=== PATIENT | female | born 2000 | race Caucasian/White ===

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

== ENCOUNTER 2018-02-13 08:40 | Emergency (ER) | payer OTHER ==
[2018-02-13 08:57] VITALS: BP 125/70; PULSE 75; TEMP 98.3; BMI 26.4
--- NOTE | 2018-02-13 09:00 | PDOC ---
Post Exposure HPI - General Chief Complaint: Blood/Body Fluid Exposure SJR Stated Complaint: NEEDLE STICK WHILE DRAWING BLOOD Time Seen by Provider: 02/13/18 08:44 History Source: Patient Exam Limitations: No Limitations - History of Present Illness Timing: just prior to arrival Severity: mild Exposed Location: Left: Hand(s) Assessing Significant Risk PEP: Yes Percutaneous Past History - Past Medical History Allergies/Adverse Reactions: Allergies Allergy/AdvReac Type Severity Reaction Status Date / Time No Known Allergies Allergy Verified 02/13/18 08:43 Home Medications: Ambulatory Orders NK [No Known Home Medication] 02/13/18 Anemia: No Asthma: No Cancer: No Cardiac Disorders: No CVA: No COPD: No DVT: No Dementia: No Diabetes: No Dialysis: No GI Disorders: No Disorders: No HTN: No Hypercholesterolemia: No Kidney Stones: No Liver Disease: No Psychiatric Problems: No Seizures: No Thyroid Disease: No Lung CA: No - Surgical History Abdominal Surgery: No Appendectomy: No Cardiac Surgery: No Cholecystectomy: No Gastric Stapling: No GI Surgery: No Lung Surgery: No Neurologic Surgery: No - Immunization History Immunization Up to Date: Yes - Suicide/Smoking/Psychosocial Hx Smoking History: Never smoked Have you smoked in the past 12 months: No Hx Alcohol Use: No Drug/Substance Use Hx: No Substance Use Type: None Review of Systems - Review of Systems Able to Perform ROS?: Yes Comments:: 02/13/18 08:45 GENERAL/CONSTITUTIONAL: No fever or chills. No weakness. HEAD, EYES, EARS, NOSE AND THROAT: No change in vision. No ear pain or discharge. No sore throat. CARDIOVASCULAR: No chest pain or shortness of breath. RESPIRATORY: No cough, wheezing, or hemoptysis. GASTROINTESTINAL: No nausea, vomiting, diarrhea or constipation. GENITOURINARY: No dysuria, frequency, or change in urination. MUSCULOSKELETAL: No joint or muscle swelling or pain. No neck or back pain. SKIN: No rash NEUROLOGIC: No headache, vertigo, loss of consciousness, or change in strength/ sensation. ENDOCRINE: No increased thirst. No abnormal weight change. HEMATOLOGIC/LYMPHATIC: No anemia, easy bleeding, or history of blood clots. ALLERGIC/IMMUNOLOGIC: No hives or skin allergy. *Physical Exam - Physical Exam Comments: 02/13/18 08:45 GENERAL: Awake, alert, and fully oriented, in no acute distress. HEAD: No signs of trauma EYES: PERRLA, EOMI, sclera anicteric, conjunctiva clear ENT: Auricles normal inspection, hearing grossly normal, nares patent NECK: Normal ROM, supple EXTREMITIES: Normal range of motion, no edema. NEUROLOGICAL: Cranial nerves II through XII grossly intact. Normal speech, normal gait. SKIN: Warm, Dry, normal turgor, no rashes or lesions noted. Left hand with no skin lacerations, abrasions, or rupture. Medical Decision Making - Medical Decision Making 02/13/18 09:00 18 yo F c/ no pmh, [facility] [employer], presents with post exposure. Was using a 25 gauge butterfly needle in outpatient office. As she withdraw needle, accidentally scratched herself. Denies puncture or other injuries. Tetanus is up to date. Skin appears to be overall intact (with a very mild scratch along the dorsal surface of left hand). Very low risk for HIV. Discussed risks and benefits of HIV prophylaxis, and after discussion, we both concluded that we will not be starting prophylactics at this time. Pt's billing supervisor contacted and aware. Will have patient fill out incident report. Draw post exposure blood work, HIV test, hepatitis panel, and have patient follow up with occupational health. Pt verbalizes understanding and agrees with plan. *DC/Admit/Observation/Transfer Diagnosis at time of Disposition: Employee exposure to body fluids - Discharge Dispostion Disposition: HOME Condition at time of disposition: Stable Admit: No - Referrals - Patient Instructions Printed Discharge Instructions: How to Handle Body Fluid Exposure -- Healthcare Worker Additional Instructions: It is important that you call your billing supervisor and occupational health to discuss follow up.
[2018-02-13 09:39] LABS: BASO % 0.5 % (0-2.0); RDW 11.8 % (11.6-15.6)
[2018-02-13 09:42] LABS: EOS % 0.8 % (0-4.5); HEMATOCRIT 40.7 % (32.4-45.2); HEMOGLOBIN 13.6 GM/dl (10.7-15.3); LYMPH % 31.8 % (8-40); MCH 30.7 pg (25.7-33.7); MCHC 33.5 g/dl (32.0-36.0); MEAN CELL VOLUME 91.7 fl (80-96); MEAN PLT VOLUME 9.1 fl (7.5-11.1); MONO % 4.6 % (3.8-10.2); NEUT % 62.3 % (42.8-82.8); PLATELET COUNT 248 K/MM3 (134-434); RBC 4.44 M/mm3 (3.60-5.2); WHITE BLOOD COUNT 5.8 K/mm3 (4.0-10.8)
[2018-02-13 09:45] LABS: ALBUMIN 4.5 g/dl (3.5-5.0); ALK PHOS 61 U/L (32-92); ANION GAP 9 (8-16); BILIRUBIN,TOTAL 0.6 mg/dl (0.2-1.0); BLOOD UREA NITROGEN 12 mg/dl (7-18); CALCIUM 9.8 mg/dl (8.4-10.2); CHLORIDE 104 mmol/L (98-107); CHOLESTEROL 141 mg/dl; CO2 24 mmol/L (22-28); GAMMA GLUTAMYL TRANSPEPTIDASE 24 U/L (3-64); GLUCOSE,RANDOM 93 mg/dl (74-106); LDH 149 U/L (91-180); PHOSPHOROUS 3.7 mg/dl (2.5-4.6); SGOT/AST 21 U/L (10-42); SGPT/ALT 17 U/L (10-40); SODIUM 137 mmol/L (136-145); TOT PROT 8.1 g/dl (6.4-8.3); TRIGLYCERIDES 65 mg/dl (35-160); URIC ACID 3.6 mg/dl (2.6-7.2)
[2018-02-13 10:03] LABS: CREATININE < 0.8 mg/dl (0.6-1.3)
[2018-02-14 08:06] LABS: HBsAG SCREEN Negative (Negative); HEPATITIS B CORE ANTIBODY Negative (Negative)
== END 2018-02-13 09:32 | disposition home or self-care (01) ==
LOC: FER 08:40
DX: Z77.21 Contact with and (suspected) exposure to potentially hazardous body fluids (principal); W46.0XXA Contact with hypodermic needle, initial encounter; Y93.89 Activity, other specified; Y92.239 Unspecified place in hospital as the place of occurrence of the external cause; Y99.0 Civilian activity done for income or pay
CPT/HCPCS: 36415; 80053; 82465; 82977; 83615; 84100; 84478; 84550; 85025; 86704; 87340; 87389; 99282-25

== ENCOUNTER 2018-12-02 08:38 | Emergency (ER) | payer OTHER ==
[2018-12-02 08:46] VITALS: BMI 25.4
[2018-12-02] MEDS ORDERED: ONDANSETRON *ODT* 4 MG TABLET SL ONE (09:13)
[2018-12-02] MEDS ORDERED: SODIUM CHLORIDE 500 ML IV STA (09:17)
[2018-12-02] MEDS ORDERED: FAMOTIDINE 20 MG/50 ML IVPB 20 MG/50 ML MG IVPB ONE ×2 (09:37→09:48)
[2018-12-02] MEDS ORDERED: MAG HYDROX/AL HYDROX/SIMETH 30 ML UNIT-DOSE CUP PO ONE (09:37)
--- NOTE | 2018-12-02 09:44 | PDOC ---
History of Present Illness - General History Source: Patient Exam Limitations: Clinical Condition - History of Present Illness Initial Comments: 12/02/18 09:42 Patient with no significant past medical history present with complaint of five- day history of nausea, vomiting, epigastric pain and diarrhea. Patient reports she has been self-medicating herself with amoxicillin taken from father who is a doctor for 5 days. Patient report tactile fever yesterday but none today. Patient reported weakness and headache today. Patient denies any other symptoms 12/02/18 09:43 Timing/Duration: other (5 days) <Lam Perez - Last Filed: 12/02/18 10:48> <Timmy Pressley - Last Filed: 12/03/18 10:08> - General Chief Complaint: Nausea/Vomiting Stated Complaint: VOMITING/DIARRHEA Time Seen by Provider: 12/02/18 09:11 Past History - Past Medical History Anemia: No Asthma: No Cancer: No Cardiac Disorders: No CVA: No COPD: No DVT: No Dementia: No Diabetes: No Dialysis: No GI Disorders: No Disorders: No HTN: No Hypercholesterolemia: No Kidney Stones: No Liver Disease: No Psychiatric Problems: No Seizures: No Thyroid Disease: No Lung CA: No - Surgical History Abdominal Surgery: No Appendectomy: No Cardiac Surgery: No Cholecystectomy: No Gastric Stapling: No GI Surgery: No Lung Surgery: No Neurologic Surgery: No - Immunization History Immunization Up to Date: Yes - Suicide/Smoking/Psychosocial Hx Smoking History: Never smoked Have you smoked in the past 12 months: No Hx Alcohol Use: No Drug/Substance Use Hx: No Substance Use Type: None <AnaLam - Last Filed: 12/02/18 10:48> <Timmy Pressley - Last Filed: 12/03/18 10:08> - Past Medical History Allergies/Adverse Reactions: Allergies Allergy/AdvReac Type Severity Reaction Status Date / Time No Known Allergies Allergy Verified 12/02/18 10:18 Home Medications: Ambulatory Orders Famotidine [Pepcid] 20 mg PO DAILY #6 tablet 12/02/18 Mag Hydrox/Aluminum Hyd/Simeth [Maalox Advanced Suspension] 30 ml PO Q8H PRN # 300 ml 12/02/18 Ondansetron [Zofran Odt -] 4 mg SL TID PRN #12 od.tablet 12/02/18 Review of Systems - Review of Systems Able to Perform ROS?: Yes Is the patient limited Vietnamese proficient: No Constitutional: Yes: Malaise, Weakness. No: See HPI, Chills, Fever HEENTM: Yes: Symptoms Reported, See HPI, Nose Congestion. No: Eye Pain, Blurred Vision, Tearing, Recent change in vision, Double Vision, Cataracts, Ear Pain, Ocular Prothesis, Ear Discharge, Nose Pain, Tinnitus, Nose Bleeding, Hearing Loss, Throat Pain, Throat Swelling, Mouth Pain, Dental Problems, Difficulty Swallowing, Mouth Swelling, Other Respiratory: No: Symptoms reported, See HPI, Cough, Orthopnea, Shortness of Breath, SOB with Exertion, SOB at Rest, Stridor, Wheezing, Productive cough, Hemoptysis, Other Cardiac (ROS): No: Symptoms Reported, See HPI, Chest Pain, Edema, Irregular Heart Rate, Lightheadedness, Palpitations, Syncope, Chest Tightness, Other ABD/GI: Yes: See HPI, Diarrhea, Nausea, Vomiting, Abdominal cramping (epigastric ). No: Poor Appetite : No: Burning, Dysuria, Discharge, Frequency, Hematuria, Urgency Musculoskeletal: No: Symptoms Reported All Other Systems: Reviewed and Negative <Lam Perez - Last Filed: 12/02/18 10:48> *Physical Exam - Vital Signs Last Vital Signs Temp Pulse Resp BP Pulse Ox 98.5 F 96 H 15 118/64 99 12/02/18 08:40 12/02/18 08:40 12/02/18 08:40 12/02/18 08:40 12/02/18 08:40 - Physical Exam Comments: 12/02/18 09:40 GENERAL: Well developed, well nourished. Awake and alert. No acute distress. HEENT: Normocephalic, atraumatic. PERRLA, EOMI. No conjunctival pallor. Sclera are non-icteric. Moist mucous membranes. Oropharynx is clear. NECK: Supple. Full ROM. CARDIOVASCULAR: Regular rate and rhythm. No murmurs, rubs, or gallops. Distal pulses are 2+ and symmetric. PULMONARY: No evidence of respiratory distress. Lungs clear to auscultation bilaterally. No wheezing, rales or rhonchi. ABDOMINAL: mild epigastric tenderness. Soft. Non-distended. No rebound or guarding. No organomegaly. Normoactive bowel sounds. MUSCULOSKELETAL Normal range of motion at all joints. EXTREMITIES: No cyanosis. SKIN: Warm and dry. Normal capillary refill. NEUROLOGICAL: Alert, awake, appropriate. Gait is normal without ataxia. PSYCHIATRIC: Cooperative. Good eye contact. Appropriate mood General Appearance: Yes: Nourished, Appropriately Dressed. No: Apparent Distress <Lam Perez - Last Filed: 12/02/18 10:48> - Vital Signs Last Vital Signs Temp Pulse Resp BP Pulse Ox 98.2 F 82 16 110/62 100 12/02/18 10:51 12/02/18 10:51 12/02/18 11:20 12/02/18 10:51 12/02/18 11:20 <Timmy Pressley - Last Filed: 12/03/18 10:08> Moderate Sedation - Procedure Monitoring Vital Signs: Procedure Monitoring Vital Signs Temperature 98.5 F 12/02/18 08:40 Pulse Rate 96 H 12/02/18 08:40 Respiratory Rate 15 12/02/18 08:40 Blood Pressure 118/64 12/02/18 08:40 O2 Sat by Pulse Oximetry (%) 99 12/02/18 08:40 <Lam Perez - Last Filed: 12/02/18 10:48> - Procedure Monitoring Vital Signs: Procedure Monitoring Vital Signs Temperature 98.2 F 12/02/18 10:51 Pulse Rate 82 12/02/18 10:51 Respiratory Rate 16 12/02/18 11:20 Blood Pressure 110/62 12/02/18 10:51 O2 Sat by Pulse Oximetry (%) 100 12/02/18 11:20 <Timmy Pressley - Last Filed: 12/03/18 10:08> ED Treatment Course - LABORATORY CBC & Chemistry Diagram: 12/02/18 09:51 12/02/18 09:51 <Lam Perez - Last Filed: 12/02/18 10:48> - LABORATORY CBC & Chemistry Diagram: 12/02/18 09:51 12/02/18 09:51 - ADDITIONAL ORDERS Additional order review: 12/02/18 09:54 Throat Culture - Final Throat NO BETA HEMOLYTIC STREPTOCOCCI ISOLATED 12/02/18 09:51 RBC 3.70 MCV 92.4 MCHC 35.0 RDW 12.7 MPV 7.9 D Neutrophils % 53.2 Lymphocytes % 32.3 Monocytes % 11.4 H Eosinophils % 2.4 D Basophils % 0.7 - Medications Given in the ED: ED Medications Discontinued Medications Generic Name Dose Route Start Last Admin Trade Name Lyle PRN Reason Stop Dose Admin Al Hydroxide/Mg Hydroxide 30 ml 12/02/18 09:37 12/02/18 10:00 Mylanta Oral Suspension - PO 12/02/18 09:38 30 ml ONCE ONE Administration Sodium Chloride 500 mls @ 500 mls/hr 12/02/18 09:17 12/02/18 10:03 Normal Saline - IV 12/02/18 10:16 500 mls/hr ASDIR STA Administration Famotidine/Sodium Chloride 20 mg in 50 mls @ 100 mls/hr 12/02/18 09:37 10:00 Pepcid 20 Mg Premixed Ivpb - IVPB 12/02/18 10:06 100 mls/hr ONCE ONE Administration Ondansetron HCl 4 mg 12/02/18 09:13 12/02/18 10:00 Zofran Odt - SL 12/02/18 09:14 4 mg ONCE ONE Administration <Timmy Pressley - Last Filed: 12/03/18 10:08> Medical Decision Making - Medical Decision Making 12/02/18 09:44 Patient with no significant past medical history present with complaint of five- day history of nausea, vomiting, epigastric pain and diarrhea. Patient reports she has been self-medicating herself with amoxicillin taken from father who is a doctor for 5 days. Clinical exam significant for mild epigastric pain otherwise unremarkable exam. No pharyngeal erythema on exam. Normal lungs exam with lungs clear to auscultation bilateral. CBC, CMP, urine test and UA ordered. Zofran 4 mg sublingual ordered for nausea. IV fluid with normal saline 500 mg ordered. Pepcid 20 mg IV and Maalox 30 mg by mouth ordered. Treat based on lab results 12/02/18 10:42 CBC and chemistry unremarkable. Urine test negative. UA shows no acute pathology. Patient felt better with IV fluid, Pepcid and Maalox. Patient is stable for discharge on outpatient treatment for gastroenteritis with conservative management and GI follow-up as needed. <Lam Perez - Last Filed: 12/02/18 10:48> - Medical Decision Making The patient was seen and evaluated in conjunction with HYACINTH Perez under my direct supervision, ancillary studies were reviewed. I agree with the plan as outlined by HYACINTH Perez. <WendieTimmy - Last Filed: 12/03/18 10:08> *DC/Admit/Observation/Transfer - Discharge Dispostion Decision to Admit order: No <Lam Perez - Last Filed: 12/02/18 10:48> <Timmy Pressley - Last Filed: 12/03/18 10:08> Diagnosis at time of Disposition: Vomiting and diarrhea, Gastroenteritis Diarrhea Qualifiers: Diarrhea type: unspecified type Qualified Code(s): R19.7 - Diarrhea, unspecified - Discharge Dispostion Disposition: HOME Condition at time of disposition: Stable - Prescriptions Prescriptions: Famotidine [Pepcid] 20 mg PO DAILY #6 tablet Mag Hydrox/Aluminum Hyd/Simeth [Maalox Advanced Suspension] 30 ml PO Q8H PRN # 300 ml PRN Reason: abdominal discomfort Ondansetron [Zofran Odt -] 4 mg SL TID PRN #12 od.tablet PRN Reason: vomiting - Referrals Referrals: Uyen Pham MD [Primary Care Provider] - Lucio Santa MD [Staff Physician] - - Patient Instructions Printed Discharge Instructions: Viral Gastroenteritis, DI for Vomiting -- Adult Additional Instructions: Your labs was normal. Stop taking amoxicillin antibiotics as it may upset the stomach. Take medication as prescribed. Increase fluid intake. Follow-up referred GI as needed if symptoms persist for more than 4 days. - Post Discharge Activity Forms/Work/School Notes: Back to Work
[2018-12-02] MEDS ORDERED: MAG HYDROX/AL HYDROX/SIMETH 30 ML UNIT-DOSE CUP ONE (09:48)
[2018-12-02] MEDS ORDERED: ONDANSETRON *ODT* 4 MG TABLET ONE (09:48)
[2018-12-02 10:01] LABS: BASO % 0.7 % (0-2.0); EOS % 2.4 % (0-4.5); HEMATOCRIT 34.2 % (32.4-45.2); LYMPH % 32.3 % (8-40); MCH 32.3 pg (25.7-33.7); MEAN CELL VOLUME 92.4 fl (80-96); MEAN PLT VOLUME 7.9 fl (7.5-11.1); MONO % 11.4 % (3.8-10.2); NEUT % 53.2 % (42.8-82.8); PLATELET COUNT 257 K/MM3 (134-434); RDW 12.7 % (11.6-15.6); WHITE BLOOD COUNT 5.5 K/mm3 (4.0-10.0)
[2018-12-02 10:02] LABS: URINE APPEARANCE TURBID; URINE BILIRUBIN NEGATIVE (<2.0 mg/dL); URINE COLOR YELLOW; URINE GLUCOSE (UA) NEGATIVE (NEGATIVE); URINE KETONE NEGATIVE (NEGATIVE); URINE LEUK ESTERASE NEGATIVE (NEGATIVE); URINE NITRITE NEGATIVE (NEGATIVE); URINE PROTEIN NEGATIVE (NEGATIVE); URINE UROBILINOGEN NEGATIVE mg/dL (0.2-1.0)
[2018-12-02 10:36] LABS: ALBUMIN 3.8 g/dl (3.4-5.0); ALK PHOS 60 U/L (45-117); ANION GAP 8 MMOL/L (8-16); BILIRUBIN,TOTAL 0.2 mg/dL (0.2-1); BLOOD UREA NITROGEN 9 mg/dL (7-18); CALCIUM 8.1 mg/dL (8.5-10.1); CHLORIDE 110 mmol/L (98-107); CO2 26 mmol/L (21-32); CREATININE 0.6 mg/dL (0.55-1.3); GLUCOSE,RANDOM 79 mg/dL (74-106); POTASSIUM 3.9 mmol/L (3.5-5.1); SGOT/AST 22 U/L (15-37); SGPT/ALT 29 U/L (13-61); SODIUM 144 mmol/L (136-145); TOT PROT 7.4 g/dl (6.4-8.2)
[2018-12-02 10:52] VITALS: BP 110/62; PULSE 82; TEMP 98.2
== END 2018-12-02 11:23 | disposition home or self-care (01) ==
LOC: JERFT 08:38 → JER 08:38
PROC: 3E033GC Introduction of Other Therapeutic Substance into Peripheral Vein, Percutaneous Approach (ICD-10-PCS; principal; 2018-12-02)
PROC: 3E0337Z Introduction of Electrolytic and Water Balance Substance into Peripheral Vein, Percutaneous Approach (ICD-10-PCS; 2018-12-02)
DX: K52.9 Noninfective gastroenteritis and colitis, unspecified (principal)
CPT/HCPCS: 36415; 80053; 81003; 84703; 85025; 87070; 87880; 99283-25; Q0162